=== PATIENT | male | born 1935 ===

== ENCOUNTER 2022-07-02 17:56 | Inpatient (IN) ==
[2022-07-02] MEDS ORDERED: ACETAMINOPHEN 325 MG TABLET PO PRN (21:02)
[2022-07-02] MEDS ORDERED: GLUCAGON 1 MG VIAL IM PRN (21:02)
[2022-07-02] MEDS ORDERED: MELATONIN 3 MG TABLET PO PRN (21:02)
[2022-07-02] MEDS ORDERED: DEXTROSE 10% 250 ML BAG IV PRN (21:25)
[2022-07-02 22:05] LABS: Basophils % 0.1 % (0.0-0.8); Hematocrit 33.9 VOL% (42.0-52.0); Hemoglobin 10.9 GM/DL (14.0-18.0); Immature Granulocytes % 0.6 %; Immature Granulocytes Absolute 0.06 #; Lymphocytes # 0.6 10*3/uL (1.4-4.0); Lymphocytes % 6.1 % (21.2-54.2); Mean Corpuscular HGB Conc 32.2 GM/DL (32-36); Mean Corpuscular Volume 96.9 FL (87-102); Mean Platelet Volume 10.2 FL (9.6-12.0); Monocytes # 0.6 10*3/uL (0.11-0.8); Monocytes % 6.3 % (1.7-12.7); Neutrophils % 86.9 % (38.7-73.9); Platelet Count 199 T/CUMM (130-400); Red Cell Distribution Width 15.7 % (9.3-17.3)
[2022-07-02] MEDS ORDERED: BENZONATATE 100 MG CAPSULE PO ONE (22:24)
[2022-07-02 22:25] LABS: Albumin 2.9 G/DL (3.4-5.0); Bilirubin,Total 0.5 MG/DL (0.20-1.00); Calcium 8.1 MG/DL (8.5-10.1); Osmolality,Calculated 311.5 MOS/KG (273-304); Potassium 5.2 MMOL/L (3.5-5.1); Total Protein 6.2 G/DL (6.4-8.2)
[2022-07-02 22:27] LABS: Ferritin 66.8 ng/mL (26-388)
[2022-07-02] MEDS: SODIUM ACETATE 50 MEQ in SODIUM CHLORIDE 0.45% 1,000 ML IV SCH (22:41)
[2022-07-02] MEDS: cefTRIAXone 1,000 MG in SODIUM CHLORIDE 0.9% 100 ML IV SCH (22:41)
[2022-07-02] MEDS: ENOXAPARIN 100 MG/ML SYRINGE SUBCUT SCH (22:45)
[2022-07-02] MEDS ORDERED: AZITHROMYCIN INJ 500 MG in SODIUM CHLORIDE 0.9% 250 ML IV ONE (23:00)
[2022-07-03 07:28] LABS: Hematocrit 32.6 VOL% (42.0-52.0); Hemoglobin 10.5 GM/DL (14.0-18.0); Immature Granulocytes % 0.5 %; Immature Granulocytes Absolute 0.04 #; Lymphocytes # 0.7 10*3/uL (1.4-4.0); Lymphocytes % 8.7 % (21.2-54.2); Mean Corpuscular HGB Conc 32.2 GM/DL (32-36); Mean Corpuscular Volume 96.7 FL (87-102); Mean Platelet Volume 9.8 FL (9.6-12.0); Monocytes # 0.5 10*3/uL (0.11-0.8); Monocytes % 6.6 % (1.7-12.7); Neutrophils % 84.2 % (38.7-73.9); Platelet Count 174 T/CUMM (130-400); Red Blood Count 3.37 MC/CUMM (3.8-5.5); Red Cell Distribution Width 15.8 % (9.3-17.3)
[2022-07-03 07:59] LABS: Risk Ratio 2.95; VLDL Cholesterol 29.2 MG/DL
[2022-07-03 08:00] LABS: Albumin 2.8 G/DL (3.4-5.0); Bilirubin,Total 0.5 MG/DL (0.20-1.00); Calcium 8.3 MG/DL (8.5-10.1); Osmolality,Calculated 312.1 MOS/KG (273-304); Potassium 5.6 MMOL/L (3.5-5.1); Total Protein 5.7 G/DL (6.4-8.2)
[2022-07-03] MEDS: CHOLECALCIFEROL 1,000 UNIT TABLET PO SCH (08:45)
[2022-07-03] MEDS: ASCORBIC ACID 500 MG TABLET PO SCH ×2 (08:45→21:47)
[2022-07-03] MEDS: ZINC GLUCONATE 50 MG TABLET PO SCH (08:45)
[2022-07-03] MEDS: FAMOTIDINE 20 MG TABLET PO SCH ×2 (08:46→21:47)
[2022-07-03] MEDS: BENZONATATE 100 MG CAPSULE PO SCH ×3 (08:46→21:47)
[2022-07-03] MEDS: CETIRIZINE 10 MG TABLET PO SCH (08:46)
[2022-07-03] MEDS: DEXAMETHASONE 4 MG/1 ML VIAL IV SCH (08:47)
[2022-07-03] MEDS: SODIUM ACETATE 50 MEQ in SODIUM CHLORIDE 0.45% 1,000 ML IV SCH ×2 (08:48→23:16)
[2022-07-03] MEDS: ALBUTEROL INHALER 18 GM INH SCH ×3 (08:51→18:16)
[2022-07-03] MEDS ORDERED: ENOXAPARIN 30 MG/0.3 ML SYRINGE SUBCUT SCH (09:00)
[2022-07-03] MEDS ORDERED: INSULIN REGULAR 10 UNIT, CALCIUM GLUCONATE 1,000 MG in DEXTROSE 10% 250 ML IV ONE ×2 (11:00→18:00)
[2022-07-03] MEDS ORDERED: SODIUM ZIRCONIUM CYCLOSILICATE 10 GM PACK PO ONE (14:03)
[2022-07-03] MEDS: ASPIRIN EC 81 MG TABLET PO SCH (14:41)
[2022-07-03] MEDS: ENOXAPARIN 100 MG/ML SYRINGE SUBCUT SCH (23:16)
[2022-07-03] MEDS: cefTRIAXone 1,000 MG in SODIUM CHLORIDE 0.9% 100 ML IV SCH (23:16)
[2022-07-04] LABS: Calcium 8.6 MG/DL (8.5-10.1); Osmolality,Calculated 301.5 MOS/KG (273-304); Potassium 5.3 MMOL/L (3.5-5.1)
[2022-07-04 06:00] LABS: Hematocrit 30.2 VOL% (42.0-52.0); Hemoglobin 9.8 GM/DL (14.0-18.0); Immature Granulocytes % 0.9 %; Immature Granulocytes Absolute 0.07 #; Lymphocytes # 0.6 10*3/uL (1.4-4.0); Lymphocytes % 8.1 % (21.2-54.2); Mean Corpuscular HGB Conc 32.5 GM/DL (32-36); Mean Corpuscular Volume 95.6 FL (87-102); Mean Platelet Volume 9.8 FL (9.6-12.0); Monocytes # 0.6 10*3/uL (0.11-0.8); Platelet Count 157 T/CUMM (130-400); Red Blood Count 3.16 MC/CUMM (3.8-5.5); Red Cell Distribution Width 15.5 % (9.3-17.3); White Blood Count 7.8 T/CUMM (4-12)
[2022-07-04 06:21] LABS: Albumin 2.6 G/DL (3.4-5.0); Bilirubin,Total 0.5 MG/DL (0.20-1.00); Calcium 8.4 MG/DL (8.5-10.1); Osmolality,Calculated 301.4 MOS/KG (273-304); Potassium 5.5 MMOL/L (3.5-5.1); Total Protein 5.5 G/DL (6.4-8.2)
[2022-07-04] MEDS: ALBUTEROL INHALER 18 GM INH SCH ×2 (06:37→09:14)
[2022-07-04] MEDS: BENZONATATE 100 MG CAPSULE PO SCH ×3 (09:14→21:57)
[2022-07-04] MEDS: CHOLECALCIFEROL 1,000 UNIT TABLET PO SCH (09:14)
[2022-07-04] MEDS: ASCORBIC ACID 500 MG TABLET PO SCH ×2 (09:14→21:57)
[2022-07-04] MEDS: FAMOTIDINE 20 MG TABLET PO SCH ×2 (09:14→21:57)
[2022-07-04] MEDS: SODIUM ZIRCONIUM CYCLOSILICATE 10 GM PACK PO SCH ×3 (09:14→21:57)
[2022-07-04] MEDS: ASPIRIN EC 81 MG TABLET PO SCH (09:14)
[2022-07-04] MEDS: ZINC GLUCONATE 50 MG TABLET PO SCH (09:14)
[2022-07-04] MEDS: CETIRIZINE 10 MG TABLET PO SCH (09:15)
[2022-07-04] MEDS: DEXAMETHASONE 4 MG/1 ML VIAL IV SCH (09:15)
[2022-07-04] MEDS: ALBUTEROL/IPRATROPIUM 3 ML NEB RESP TX SCH ×2 (14:10→19:38)
[2022-07-04] MEDS: SODIUM ACETATE 50 MEQ in SODIUM CHLORIDE 0.45% 1,000 ML IV SCH (15:32)
[2022-07-04] MEDS: ENOXAPARIN 100 MG/ML SYRINGE SUBCUT SCH (23:20)
[2022-07-04] MEDS: cefTRIAXone 1,000 MG in SODIUM CHLORIDE 0.9% 100 ML IV SCH (23:20)
[2022-07-05] MEDS: ALBUTEROL/IPRATROPIUM 3 ML NEB RESP TX SCH ×4 (01:12→19:50)
[2022-07-05 05:51] LABS: Hemoglobin 9.8 GM/DL (14.0-18.0); Immature Granulocytes % 0.7 %; Immature Granulocytes Absolute 0.05 #; Lymphocytes # 0.5 10*3/uL (1.4-4.0); Lymphocytes % 6.2 % (21.2-54.2); Mean Corpuscular HGB Conc 32.7 GM/DL (32-36); Mean Corpuscular Volume 96.8 FL (87-102); Mean Platelet Volume 10.8 FL (9.6-12.0); Monocytes # 0.4 10*3/uL (0.11-0.8); Monocytes % 5.8 % (1.7-12.7); Neutrophils % 87.3 % (38.7-73.9); Platelet Count 150 T/CUMM (130-400); Red Cell Distribution Width 15.7 % (9.3-17.3); White Blood Count 7.2 T/CUMM (4-12)
[2022-07-05 06:09] LABS: Calcium 8.3 MG/DL (8.5-10.1); Osmolality,Calculated 300.1 MOS/KG (273-304); Potassium 5.3 MMOL/L (3.5-5.1)
[2022-07-05] MEDS ORDERED: SODIUM CHLORIDE 0.9% 1,000 ML IV SCH (08:30)
[2022-07-05] MEDS ORDERED: TUBERCULIN SKIN TEST 0.1 ML SYRINGE INTRADERM ONE (09:30)
[2022-07-05] MEDS: CHOLECALCIFEROL 1,000 UNIT TABLET PO SCH (09:38)
[2022-07-05] MEDS: DEXAMETHASONE 4 MG/1 ML VIAL IV SCH (09:38)
[2022-07-05] MEDS: FAMOTIDINE 20 MG TABLET PO SCH ×2 (09:39→22:01)
[2022-07-05] MEDS: ASPIRIN EC 81 MG TABLET PO SCH (09:39)
[2022-07-05] MEDS: BENZONATATE 100 MG CAPSULE PO SCH ×3 (09:39→22:01)
[2022-07-05] MEDS: SODIUM ZIRCONIUM CYCLOSILICATE 10 GM PACK PO SCH ×3 (09:39→22:10)
[2022-07-05] MEDS: ZINC GLUCONATE 50 MG TABLET PO SCH (09:39)
[2022-07-05] MEDS: CETIRIZINE 10 MG TABLET PO SCH (09:39)
[2022-07-05] MEDS ORDERED: amLODIPine 5 MG TABLET PO SCH (10:00)
[2022-07-05] MEDS: SODIUM ACETATE 50 MEQ in SODIUM CHLORIDE 0.45% 1,000 ML IV SCH (10:27)
[2022-07-05] MEDS: ASCORBIC ACID 500 MG TABLET PO SCH ×2 (10:27→22:01)
[2022-07-05] MEDS: ENOXAPARIN 100 MG/ML SYRINGE SUBCUT SCH (22:10)
[2022-07-05] MEDS ORDERED: LORazepam 2 MG/1 ML VIAL IV ONE (23:59)
[2022-07-06] MEDS: cefTRIAXone 1,000 MG in SODIUM CHLORIDE 0.9% 100 ML IV SCH (00:32)
[2022-07-06 00:47] VITALS: BP 146/74
[2022-07-06] MEDS: ALBUTEROL/IPRATROPIUM 3 ML NEB RESP TX SCH ×2 (01:00→07:05)
== END 2022-07-06 04:24 | disposition expired | DRG 177 ==
LOC: N.3E → SUATTDRO 20:21 → OBSVTOIN 20:21
PROVIDERS: ADMIT Internal Medicine; ATTEND Internal Medicine